=== PATIENT | male | born 1970 | race Caucasian/White ===

== ENCOUNTER 2019-01-31 08:25 | Observation (INO) ==
[2019-01-31] MEDS ORDERED: Ondansetron 4 MG/2 ML VIAL IVP ONE (08:29)
[2019-01-31] MEDS ORDERED: 0.9 % Sodium Chloride 500 ML IVC ONE (08:29)
[2019-01-31] MEDS ORDERED: Nitroglycerin 1 INCH/GM PACKET TP ONE (08:29)
--- NOTE | 2019-01-31 08:31 | Emergency Department Note ---
Disposition Clinical Impression: Chest pain Qualifiers: Chest pain type: precordial pain Qualified Code(s): R07.2 - Precordial pain Disposition: Admitted As Inpatient Condition: Fair Referrals: NONE,PCP [Non-Partnered Physician] - Forms: ED Satisfaction Letter Time of Disposition: 10:30 Chest Pain HPI - General Chief Complaint: ED Chest Pain Stated Complaint: Chest Pain Time Seen by Provider: 01/31/19 08:29 Source: patient, EMS Mode of arrival: EMS Limitations: no limitations Vital Signs Reviewed: Yes Nursing Notes Reviewed: Yes - History of Present Illness HPI Narrative: Patient presents with history of some sharp left-sided chest pain for 2-3 days. He states he has had a constant midsternal chest pain since last night that is described as a needle feeling in the sitting pressure on his anterior chest. He feels that is a little bit worse when he is up and walking around. It feels like previous chest pains that he has had. Indicates he has had multiple evaluation but cannot recall that he has had any type of stent. He has had a remote catheterization and multiple stress tests in the past. He relates his cardiac care has been at [facility]. With this discomfort he states he has felt a little sweaty and nauseated and short of breath. He denies pain radiating to his jaw, back or arms. He denies cough, fevers or chills. Denies any abdominal pains. He has not had lower extremity swelling, immobilization, injury or pain. He denies any change to his medications or activity. He has a question of history of heart disease with recurrent chest pain evaluations in the past. He does have history of hypertension, diabetes and elevated cholesterol. States a family history is positive for father had a pacemaker and "heart disease". He is a lifetime nonsmoker and denies history of DVT or PE. He has been brought in by EMS with aspirin and nitroglycerin administered and an IV established. He had no effect with the nitroglycerin. EKG was obtained by EMS at 8048. This showed a sinus rhythm with a rate of 78, axis of -13, WI interval of 186 and a QT/QTC of 370/401. This is without any acute ST or T-wave changes to suggest ischemia or infarction. This is on my interpretation. Pt complaint: chest pain Onset (ago): day(s) (3) Duration: intermittent, gradually worsening Onset: during rest, during exertion Pain Location: substernal, left chest Severity: moderate, severe Quality: heaviness, sharp Pain Radiation: none Improves with: rest Worsens with: exertion, inspiration, palpation Associated symptoms: Reports: nausea, diaphoresis, dyspnea. Denies: vomiting, syncope, palpitations, fever, cough, leg swelling Treatments prior to arrival chest pain: aspirin, nitroglycerin - Related Data Home Medications Medication Instructions Recorded Confirmed Pravastatin Sodium [Pravachol] 40 mg PO HS 11/01/15 01/31/19 Aspirin 81 mg PO DAILY 10/12/16 01/31/19 Cetirizine HCl [24Hour Allergy] 10 mg PO DAILY 10/12/16 01/31/19 Isosorbide MONOnitrate (24 HR) 30 mg PO DAILY 10/12/16 01/31/19 [Imdur] Losartan Potassium [Cozaar] 100 mg PO DAILY 10/12/16 01/31/19 Nitroglycerin [Nitrostat] 0.4 mg SL Q5M PRN 10/12/16 01/31/19 Omeprazole [PriLOSEC] 20 mg PO DAILY 10/12/16 01/31/19 metFORMIN [Glucophage] 500 mg PO BIDWM 10/12/16 01/31/19 Metoprolol [Lopressor] 100 mg PO BID 08/25/17 01/31/19 SitaGLIPtin [Januvia] 100 mg PO DAILY 08/25/17 01/31/19 Previous Rx's Medication Instructions Recorded Amoxicillin/Clavulanate [Augmentin] 875 mg PO BID #20 tablet 05/10/18 Ondansetron ODT [Zofran ODT] 4 mg SL Q6HR PRN #10 tab.rapdis 05/10/18 methylPREDNISolone [Medrol] 4 mg PO TAPER #21 tablet 05/10/18 Allergies Allergy/AdvReac Type Severity Reaction Status Date / Time No Known Allergies Allergy Verified 05/10/18 15:19 All systems ED: reviewed and negative except as stated. Chest Pain PMH - Past Medical History Medical history: Reports: diabetes, GERD, hypertension, seizures Surgical history: Reports: no surgical history. 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 Absent: scleral icterus, conjunctival injection - ENT ENT exam: normal exam, normal oropharynx, mucous membranes moist - Neck Neck exam: Present: normal inspection, full ROM, trachea midline - Chest Chest inspection: Present: normal inspection, symmetric chest wall rise, tenderness (Left peristernal and low sternal region). Absent: rash - Respiratory Respiratory exam: Present: normal lung sounds bilaterally. Absent: respiratory distress, wheezes, accessory muscle use - Cardiovascular Cardiovascular exam: Present: regular rate, normal rhythm, normal heart sounds. Absent: tachycardia - Abdominal Exam Abdominal exam: Present: soft, Non-Tender, normal bowel sounds. Absent: tenderness, distention, guarding, rebound, rigidity Abdominal tenderness: Absent: RUQ, LUQ - Extremities Exam Extremities exam: Present: normal inspection, full ROM, normal capillary refill. Absent: tenderness, pedal edema, calf tenderness - Expanded Lower Extremity Exam Neurovascular/Tendon exam: Present: normal capillary refill. Absent: motor deficit, sensory deficit, tendon deficit Gait: observed and normal - Back Exam Back exam: Present: normal inspection, full ROM. Absent: tenderness, CVA tenderness (R), CVA tenderness (L) - Neurological Exam Neurological exam: Present: alert, oriented X3 - Psychiatric Psychiatric exam: Present: normal affect, normal mood. Absent: agitated, anxious - Skin Skin exam: Present: warm, dry, intact, normal color. Absent: diaphoresis, pallor Course Course Narrative: The results of all testing is been discussed with the patient and family. He is resting comfortably with a heart rate of 78, respiratory rate of 18, blood pressure 164/100 and oxygen saturation of 98% on room air. He states he is currently completely pain-free with an inch of Nitro paste. I reviewed his multiple previous evaluations for chest pain, his 20th negative troponin and his negative stress tests. He, nonetheless, does have cardiac risk factors and a current presentation with pain consistent with a myocardial cause an relief with nitroglycerin. I recommended observation with serial troponins and he is agreeable. I have subsequently discussed this with Dr. Thompson who is agreeable with observation at this facility and coordinate further outpatient referrals and testing if his serial troponins were negative. Vital Signs Temperature 97.8 F 01/31/19 08:26 Pulse Rate 78 01/31/19 08:26 Respiratory Rate 18 01/31/19 08:26 Blood Pressure 168/90 01/31/19 08:26 O2 Sat by Pulse Oximetry 96 01/31/19 08:26 Temperature 97.8 F 01/31/19 08:26 Pulse Rate 71 01/31/19 10:10 Respiratory Rate 17 01/31/19 10:10 Blood Pressure 158/99 01/31/19 10:10 O2 Sat by Pulse Oximetry 99 01/31/19 10:10 Oxygen Delivery Oxygen Delivery Nasal Cannula Chest Pain - Differential Diagnosis Likely: atypical chest pain, costalchondritis, chest pain - Medical Records Medical records reviewed: Yes I reviewed the patient's medical records. Name: MATT NORMAN Date of Study: 10/30/2013 Date: 1970 Indication: Chest Pain, Palpitations Impressions: Stress ECG is negative for ischemia. Normal hemodynamic responses to exercise. The exercise capacity was fair. Patient exercised 8 min 0 sec into stage 3 of the Isaiah protocol, stopping due to fatigue and dyspnea. Achieved 93% MPHR, 10.1 METs, DP 30,360. No chest pain or significant arrhythmias were noted during exercise or recovery. Findings: Resting ECG showed normal sinus rhythm; no arrhythmias. Stress ECG is negative for ischemia. Normal hemodynamic responses to exercise. The exercise capacity was fair. Patient exercised 8 min 0 sec into stage 3 of the Isaiah protocol, stopping due to fatigue and dyspnea. Achieved 93% MPHR, 10.1 METs, DP 30,360. No chest pain or significant arrhythmias were noted during exercise or recovery. History: Hypercholesteremia The cardiology evaluation from October 2013 is as follows: "HOSPITAL COURSE: Patient came to us on March 21, 2014 with a diagnosis of chest pain. During his hospital stay, the patient did get an EKG. He had serial troponins and an echo. We did find a history in the computer of one catheterization and multiple stress tests with no significant findings. Patient is stable and denies any pain at this time. We will go ahead and discharge patient in stable condition. We will give him some sublingual nitro to have in case he experiences chest pain again and we will start him on Imdur 60 mg q.a.m. We also did find in the course of his stay that he has mild renal insufficiently at this time which is a new finding. We will send him back to his PCP in two weeks, and he was instructed to followup and check a basic metabo lic panel in one week. Patient's family understands that due to his current negative pain and also that his echo findings today were 60% left ventricular ejection fraction and just mild left ventricular diastolic dysfunction, mild tricuspid regurg, and he has been stable here overnight with negative troponins. " Patient's cardiac catheterization was from September 2010 with results as follows: Catheterization Lab Patient Name: Matt Norman Procedure Date: 10/01/2010 Date of : 1970 Findings/Interventions: Left Ventriculography - There was normal size and contractility of the left ventricle. Left ventricular ejection fraction was 65%. Left Main Coronary Artery - There were no obstructing lesions in the left main coronary artery. Blood flow appeared normal. Left Anterior Descending Artery - There was a 30% tubular stenosis in the mid left anterior descending artery. Left Circumflex Artery - The circumflex artery gave rise to a single obtuse marginal artery. There were luminal irregularities from the proximal left circumflex artery to the proximal first obtuse marginal artery. 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 Right Coronary Artery - The right coronary artery was dominant to the posterior circulation. There were luminal irregularities from the proximal to mid right coronary artery. Impression: Minimal atherosclerotic coronary artery disease. Normal left ventricular size and contractility. The left ventricular ejection fraction was 65%. Have reviewed all the patient's troponins back to 10/01/2010 and he has had 19 negative studies. - Lab Data Lab results reviewed: Yes I reviewed the patient's lab results. Result diagrams: 01/31/19 08:52 01/31/19 08:52 Lab Results 01/31/19 01/31/19 01/31/19 Range/Units 08:52 08:52 08:52 WBC 6.3 (4.3-11.1) K/mcL RBC 4.49 (4.19-5.50) M/mcL Hgb 13.7 (12.9-16.9) g/dL Hct 38.6 (37.5-50.1) % MCV 86.0 (83.0-100.0) fL MCH 30.5 (28.0-33.3) pg MCHC 35.5 (31.6-35.5) g/dL RDW 12.1 (11.5-14.5) % Plt Count 152 (140-400) K/mcL MPV 9.8 (9.4-12.4) fL Immature Gran % 0.3 (0-4) % Seg Neutrophils % 74.9 % Lymphocytes % 15.0 % Monocytes % 7.0 % Eosinophils % 2.2 % Basophils % 0.6 % Neutrophils # 4.7 (1.6-8.9) K/mcL Lymphocytes # 0.9 (0.6-4.6) K/mcL Monocytes # 0.4 (0.0-1.3) K/mcL Eosinophils # 0.1 (0.0-0.6) K/mcL Basophils # 0.0 (0.0-0.2) K/mcL PT 12.0 (9.4-12.1) Seconds INR 1.1 APTT 31.6 (26.0-36.0) Seconds Sodium (136-145) mEq/L Potassium (3.5-5.1) mEq/L Chloride (98-107) mEq/L Carbon Dioxide (23-29) mEq/L BUN (6-20) mg/dL Creatinine (0.70-1.30) mg/dL Est GFR ( Amer) (> 60) Est GFR (Non-Af Amer) (> 60) BUN/Creatinine Ratio (6-26) Glucose (70-105) mg/dL Calculated Osmolality (280-300) Calcium (8.6-10.3) mg/dL Total Bilirubin 0.6 (0.3-1.0) mg/dL Direct Bilirubin 0.1 (0.0-0.2) mg/dL Indirect Bilirubin 0.5 (0.0-1.2) mg/dL AST 24 (13-39) Units/L ALT 32 (7-52) Units/L Alkaline Phosphatase 61 (34-104) Units/L Troponin I (< 0.04) ng/mL Serum Total Protein 7.1 (6.4-8.9) g/dL Albumin 4.1 (3.5-5.7) g/dL Globulin 3.0 (2.4-3.5) g/dL Albumin/Globulin Ratio 1.4 (1.1-2.2) Amylase 23 L (29-103) Units/L Lipase 39 (11-82) Units/L / Range/Units 08:52 WBC (4.3-11.1) K/mcL RBC (4.19-5.50) M/mcL Hgb (12.9-16.9) g/dL Hct (37.5-50.1) % MCV (83.0-100.0) fL MCH (28.0-33.3) pg MCHC (31.6-35.5) g/dL RDW (11.5-14.5) % Plt Count (140-400) K/mcL MPV (9.4-12.4) fL Immature Gran % (0-4) % Seg Neutrophils % % Lymphocytes % % Monocytes % % Eosinophils % % Basophils % % Neutrophils # (1.6-8.9) K/mcL Lymphocytes # (0.6-4.6) K/mcL Monocytes # (0.0-1.3) K/mcL Eosinophils # (0.0-0.6) K/mcL Basophils # (0.0-0.2) K/mcL PT (9.4-12.1) Seconds INR APTT (26.0-36.0) Seconds Sodium 139 (136-145) mEq/L Potassium 3.8 (3.5-5.1) mEq/L Chloride 106 (98-107) mEq/L Carbon Dioxide 22 L (23-29) mEq/L BUN 14 (6-20) mg/dL Creatinine 1.07 (0.70-1.30) mg/dL Est GFR ( Amer) > 60 (> 60) Est GFR (Non-Af Amer) > 60 (> 60) BUN/Creatinine Ratio 13 (6-26) Glucose 180 H (70-105) mg/dL Calculated Osmolality 293 (280-300) Calcium 8.4 L (8.6-10.3) mg/dL Total Bilirubin (0.3-1.0) mg/dL Direct Bilirubin (0.0-0.2) mg/dL Indirect Bilirubin (0.0-1.2) mg/dL AST (13-39) Units/L ALT (7-52) Units/L Alkaline Phosphatase (34-104) Units/L Troponin I < 0.03 (< 0.04) ng/mL Serum Total Protein (6.4-8.9) g/dL Albumin (3.5-5.7) g/dL Globulin (2.4-3.5) g/dL Albumin/Globulin Ratio (1.1-2.2) Amylase (29-103) Units/L Lipase (11-82) Units/L - Radiology Data Radiology results reviewed: Yes I reviewed the patient's radiology results. Single view chest x-ray is performed. This does not demonstrate evidence for infiltrate, effusion, pneumothorax, foreign body or heart failure. The cardiac silhouette is normal. I do not see abnormality to the osseous structures of the chest. This is on my interpretation. Impressions Chest X-Ray 01/31/19 08:29 IMPRESSION: No focal infiltrate noted. D/ / 01/31/2019 08:49:45 Micheal Bello MD / alistair Interpreting Provider: Micheal Bello MD - EKG Data EKG attestation: Yes I reviewed and interpreted this EKG. EKG shows normal: sinus rhythm, axis, intervals, QRS complexes, ST-T waves Rate: normal (77) Interpretation: no acute changes, normal EKG, unchanged when compared to prior tracing (date) (07/25/2015) Heart Score - Score History: Moderately Suspicious EKG: Normal Age: 45-65 Risk Factors: Equal/Greater than 3 risk factor or history of atherosclerotic disease Troponin: Less than normal limit HEART Score Total: 4
[2019-01-31 09:07] LABS: Basophils % 0.6 %; Eosinophils # 0.1 K/mcL (0.0-0.6); Eosinophils % 2.2 %; Hematocrit 38.6 % (37.5-50.1); Hemoglobin 13.7 g/dL (12.9-16.9); Immature Granulocytes % 0.3 % (0-4); Lymphocytes # 0.9 K/mcL (0.6-4.6); Mean Corpuscular HGB Conc 35.5 g/dL (31.6-35.5); Mean Corpuscular Hemoglobin 30.5 pg (28.0-33.3); Mean Platelet Volume 9.8 fL (9.4-12.4); Monocytes # 0.4 K/mcL (0.0-1.3); Neutrophils # 4.7 K/mcL (1.6-8.9); Platelet Count 152 K/mcL (140-400); Red Blood Count 4.49 M/mcL (4.19-5.50); Red Cell Distribution Width 12.1 % (11.5-14.5); Segmented Neutrophils % 74.9 %; White Blood Count 6.3 K/mcL (4.3-11.1)
[2019-01-31 09:08] LABS: INR 1.1
[2019-01-31 09:11] LABS: Activated Partial Thrombo Time 31.6 Seconds (26.0-36.0)
[2019-01-31 09:20] LABS: Albumin 4.1 g/dL (3.5-5.7); Albumin/Globulin Ratio 1.4 (1.1-2.2); BUN/Creatinine Ratio 13 (6-26); Bilirubin,Direct 0.1 mg/dL (0.0-0.2); Bilirubin,Indirect 0.5 mg/dL (0.0-1.2); Bilirubin,Total 0.6 mg/dL (0.3-1.0); Blood Urea Nitrogen 14 mg/dL (6-20); Calcium 8.4 mg/dL (8.6-10.3); Carbon Dioxide 22 mEq/L (23-29); Chloride 106 mEq/L (98-107); Glucose 180 mg/dL (70-105); Osmolality,Calculated 293 (280-300); Potassium 3.8 mEq/L (3.5-5.1); Sodium 139 mEq/L (136-145); Total Protein 7.1 g/dL (6.4-8.9); Troponin I < 0.03 ng/mL (< 0.04); eGFR For African Americans > 60 (> 60); eGFR For Non-African Americans > 60 (> 60)
[2019-01-31] MEDS ORDERED: MOM Conc 10 ML UD.LIQ PO PRN (11:58)
[2019-01-31] MEDS ORDERED: Naloxone 0.4 MG/ML INJ IVP PRN (11:58)
[2019-01-31] MEDS ORDERED: *HR* Dextrose 50 % in Water (Syg) 50 ML SYRINGE IVP PRN (11:58)
[2019-01-31] MEDS ORDERED: Mag Hydrox/Al Hydrox/Simeth 30 ML UDC PO PRN (11:58)
[2019-01-31] MEDS ORDERED: Dextrose Gel 15 GM/37.5 ML TUBE PO PRN ×2 (11:58)
[2019-01-31] MEDS ORDERED: 0.9 % Sodium Chloride 1,000 ML IVC SCH (11:58)
[2019-01-31] MEDS ORDERED: Ondansetron ODT 4 MG TAB.RAPDIS SL PRN (11:58)
[2019-01-31] MEDS ORDERED: D5% in Water 1,000 ML IVC PRN (11:58)
[2019-01-31] MEDS: Nitroglycerin 0.4 MG TAB.SUBL SL PRN ×2 (12:41→12:48)
[2019-01-31] MEDS: Insulin LISPRO 300 UNITS/3 ML VIAL SQ SCH ×2 (12:44→17:43)
--- NOTE | 2019-01-31 15:49 | Internal Med History&Physical ---
Date of Encounter: 01/31/19 Time of Encounter: 15:10 Assessment and Plan (1) Chest pain Current visit: Yes Status: Acute Possible atypical angina from vasospasm. Repeat cardiac enzymes have been ordered. Calcium channel christen will be started and further workup done as needed. Qualifiers: Chest pain type: precordial pain Qualified Code(s): R07.2 - Precordial pain (2) Type 2 diabetes mellitus Current visit: No Status: Chronic Continue Glucophage and Januvia with Accu-Cheks and SSI. 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 Internal Medicine - H&P: HPI Chief complaint: Chest pain Admitted From: Emergency Dept Plans for Post Hospital Care: Home History of present illness: Mr. Mccrary is a 48 year old male who came to emergency room stating he had discomfort in his chest described as someone "sitting on my chest" onset a few hours earlier. There was dyspnea, nausea without vomiting, and minimal cough with no productivity. He was evaluated in emergency room and admitted to [facility] floor for ongoing care needs. He reports a previous similar pain 3 days ago that improved after 2 nitroglycerin pills. He remained pain-free for the next 3 days until this morning. Cardiovascular history is significant for hypertension. Heart cath 10/01/2010 showed minimal ASHD with LVEF 65%. Regadenoson EST 08/26/2017 showed no EKG or perfusion changes indicating ischemia. Echocardiogram 08/26/2017 showed LVEF of 65-70%. There was no significant valvular abnormalities seen. Interventricular septum and posterior wall thickness measurements were elevated at 1.50 and 1.40 cm respectively. E/A ratio was 1.2. He states the chest pain seems to occur during emotional stress but not with exertional activities. He denies LA heart failure DVT or pulmonary embolus. Past Med Surg Social Fam HX - Past Medical History Medical history: diabetes, GERD, hypertension, seizures Additional medical history: Seizures were when he was a kids Psychiatric history: no psych history - Past Surgical History Surgical History: no surgical history - Social History Smoking Status: Never smoker Smokeless Tobacco Status: No Alcohol use: none Drug use: none - Family History Mother Hx Family Cardiac Disorders: No Hx Family Respiratory Disorders: No Hx Family Cancer: No Hx Family GI Disorders: No Hx Family Endocrine Disorder: No Hx Family Neuromuscular Disorders: No Hx Family Neurologic Disorders: No Hx Family HEENT Disorders: No Hx Family Autoimmune Disorders: No Father Hx Family Cardiac Disorders: Yes (pacer/defibulator) Hx Family Respiratory Disorders: No Hx Family Cancer: No Hx Family Endocrine Disorder: Yes (diabetes) Hx Family Neuromuscular Disorders: No Hx Family Neurologic Disorders: No Hx Family HEENT Disorders: No Hx Family Autoimmune Disorders: No Internal Medicine - H&P: Meds Pravastatin Sodium [Pravachol] 40 mg PO HS 11/01/15 [History] Aspirin 81 mg PO DAILY 10/12/16 [History] Cetirizine HCl [24Hour Allergy] 10 mg PO DAILY 10/12/16 [History] Isosorbide MONOnitrate (24 HR) [Imdur] 30 mg PO DAILY 10/12/16 [History] Losartan Potassium [Cozaar] 100 mg PO DAILY 10/12/16 [History] Nitroglycerin [Nitrostat] 0.4 mg SL Q5M PRN 10/12/16 [History] Omeprazole [PriLOSEC] 20 mg PO DAILY 10/12/16 [History] metFORMIN [Glucophage] 500 mg PO BIDWM 10/12/16 [History] Metoprolol [Lopressor] 100 mg PO BID 08/25/17 [History] SitaGLIPtin [Januvia] 100 mg PO DAILY 08/25/17 [History] Amoxicillin/Clavulanate [Augmentin] 875 mg PO BID #20 tablet 05/10/18 [Rx] Ondansetron ODT [Zofran ODT] 4 mg SL Q6HR PRN #10 tab.rapdis 05/10/18 [Rx] methylPREDNISolone [Medrol] 4 mg PO TAPER #21 tablet 05/10/18 [Rx] Allergy/AdvReac Type Severity Reaction Status Date / Time No Known Allergies Allergy Verified 05/10/18 15:19 All Systems PM: A 10-system review of systems was performed and is negative for pertinent findings except as documented above in the HPI. Review of systems: Gen.: He states his weight has been stable for several months Cardiovascular: As per history of present illness Respiratory: He is a lifelong nonsmoker and denies chronic lung disease GI: Denies disorders of his liver gallbladder or exocrine pancreas : He denies hematuria dysuria or kidney stones Neurologic: He reports seizures in childhood but none since age 12. He denies large distribution strokes. Endocrine: He was diagnosed with DM 2 approximately 2017. Hemoglobin A1c was 6.9% on 08/04/2018. He has history of hyperlipidemia. He denies known thyroid disease. Hematology/oncology: He denies blood disorders cancers or anemia Psychiatric: He has depression but denies anxiety other mental health issues [place] skeletal: He denies arthritis gout or other bone joint or muscle disorders. - Constitutional Vitals: Temp Pulse Resp BP Pulse Ox 97.7 F 89 20 143/81 96 01/31/19 14:22 01/31/19 14:22 01/31/19 14:22 01/31/19 14:22 01/31/19 14:22 Exam: Gen.: He is a well-developed well-nourished male lying comfortably in bed who appears in no acute distress HEENT: Head is atraumatic and normocephalic. Eyes: EOMI. There is no scleral icterus. Mouth: Mucosa is moist. Neck: Supple and nontender. There is no thyromegaly or adenopathy noted. Heart: Regular without murmurs gallops or ectopics Lungs: No wheezes or crackles are heard. Chest: He is not tender in his chest wall to palpation. Abdomen: Soft and nontender. No masses or guarding are noted. Extremities: There is no cyanosis edema or clubbing noted. Dorsalis pedis and posterior tibial pulses are 1-2 over 2 bilaterally. Neurologic: Mental status: He is talkative and a good historian. He does not remember some details of his history. Cranial nerves: Smile is symmetric. Forehead wrinkles bilaterally. Tongue protrudes midline. EOMI. Motor: There is no pronator drift. Cerebellar: Finger to nose is intact bilaterally. Skin: Warm and dry Internal Med - H&P Results - Labs CBC & Chem 7: 01/31/19 08:52 01/31/19 08:52 Labs: Short CBC 01/31/19 Range/Units 08:52 WBC 6.3 (4.3-11.1) K/mcL Hgb 13.7 (12.9-16.9) g/dL Hct 38.6 (37.5-50.1) % Plt Count 152 (140-400) K/mcL Neutrophils # 4.7 (1.6-8.9) K/mcL BMP 01/31/19 08:52 Sodium 139 Potassium 3.8 Chloride 106 Carbon Dioxide 22 L BUN 14 Creatinine 1.07 Glucose 180 H Calcium 8.4 L Cardiac Enzymes 01/31/19 01/31/19 Range/Units 08:52 12:56 Troponin I < 0.03 < 0.03 (< 0.04) ng/mL Liver Function 01/31/19 Range/Units 08:52 Total Bilirubin 0.6 (0.3-1.0) mg/dL Direct Bilirubin 0.1 (0.0-0.2) mg/dL AST 24 (13-39) Units/L ALT 32 (7-52) Units/L Alkaline Phosphatase 61 (34-104) Units/L Albumin 4.1 (3.5-5.7) g/dL - Impressions ITS Impressions Chest X-Ray 01/31/19 08:29 IMPRESSION: No focal infiltrate noted. D/ / 01/31/2019 08:49:45 Micheal Bello MD / alistair Interpreting Provider: Micheal Bello MD
[2019-01-31] MEDS: *HR* Metformin 500 MG TABLET PO SCH (17:43)
[2019-01-31] MEDS: Diltiazem CD (24hr) 180 MG CAPSULE PO SCH (17:43)
[2019-01-31] MEDS ORDERED: Acetaminophen 325 MG TABLET PO PRN (18:18)
--- NOTE | 2019-01-31 19:52 | Electrocardiograph Report ---
[place] [id number] Test Date: 2019-01-31 Pat Name: Matt Mccrary Department: EDP-16 Room: [facility] Gender: M Enrollment Specialist: : 1970 Requested By: Segundo Lora Order Number: [id number] Reading MD: Dianne Galvan Measurements Intervals [place] Rate: 77 P: 22 DE: 184 QRS: -12 QRSD: 91 T: 27 QT: 376 QTc: 426 Interpretive Statements Sinus rhythm Electronically Signed On 01-31-2019 19:51:16 EDT by Dianne Galvan
[2019-02-01] MEDS ORDERED: *HR* Enoxaparin 40 MG/0.4 ML SYRINGE SQ SCH (06:00)
[2019-02-01] MEDS: Diltiazem CD (24hr) 180 MG CAPSULE PO SCH (08:42)
[2019-02-01] MEDS: Insulin LISPRO 300 UNITS/3 ML VIAL SQ SCH (08:42)
[2019-02-01] MEDS: *HR* Metformin 500 MG TABLET PO SCH (08:42)
[2019-02-01] MEDS ORDERED: *HR* SitaGLIPtin 25 MG TABLET PO SCH (09:00)
[2019-02-01] MEDS ORDERED: Isosorbide MONOnitrate (24 HR) 30 MG TAB.ER.24H PO SCH (09:00)
[2019-02-01] MEDS ORDERED: Loratadine 10 MG TABLET PO SCH (09:00)
[2019-02-01] MEDS ORDERED: Aspirin 81 MG TAB.CHEW PO SCH (09:00)
[2019-02-01 09:02] LABS: Estimated Average Glucose 160 mg/dl
--- NOTE | 2019-02-01 09:31 | Discharge Summary ---
Date of Encounter: 02/01/19 Time of Encounter: 09:24 - Discharge Diagnosis (1) Chest pain Priority: Primary Status: Resolved Qualifiers: Chest pain type: precordial pain Qualified Code(s): R07.2 - Precordial pain (2) Type 2 diabetes mellitus Priority: Secondary Status: Chronic Qualifiers: Diabetes mellitus mcc insulin use: without supervisor fusing room use Diabetes mellitus complication status: without complication Qualified Code(s): E11.9 - Type 2 diabetes mellitus without complications (3) Essential hypertension Priority: Secondary Status: Chronic Hospital course: Mr. Mccrary is a 48 year old male who came to emergency room stating he had discomfort in his chest described as someone "sitting on my chest" onset a few hours earlier. There was dyspnea, nausea without vomiting, and minimal cough with no productivity. He was evaluated in emergency room and admitted to [facility] floor for ongoing care needs. Initial orders were written by the emergency room physician. I saw him on January 31 and performed the history and physical. Repeat cardiac enzymes showed no evidence of myocardial damage. He was started on Cardizem CD 180 mg daily. He had no further chest pain. Blood pressure returned to more desirable level. When I saw him on February 01 he felt improved and stable for discharge home. He will continue Cardizem CD at discharge. He will follow with his PCP Dr. Scott Be within 1 week. - Time Spent with Patient Total time spent providing and/or coordinating discharge services: - Discharge Medications Prescriptions: New Diltiazem CD (24hr) [Cardizem CD] 180 mg PO DAILY #30 cap.er.24h Continued Omeprazole [PriLOSEC] 20 mg PO DAILY metFORMIN [Glucophage] 500 mg PO BIDWM Isosorbide MONOnitrate (24 HR) [Imdur] 30 mg PO DAILY Losartan Potassium [Cozaar] 100 mg PO DAILY Aspirin 81 mg PO DAILY Nitroglycerin [Nitrostat] 0.4 mg SL Q5M PRN PRN Reason: Chest Pain SitaGLIPtin [Januvia] 100 mg PO DAILY Metoprolol [Lopressor] 100 mg PO BID Ondansetron ODT [Zofran ODT] 4 mg SL Q6HR PRN #10 tab.rapdis PRN Reason: Nausea Pravastatin Sodium [Pravachol] 40 mg PO HS Discontinued Cetirizine HCl [24Hour Allergy] 10 mg PO DAILY Amoxicillin/Clavulanate [Augmentin] 875 mg PO BID #20 tablet methylPREDNISolone [Medrol] 4 mg PO TAPER #21 tablet Home Medications: Pravastatin Sodium [Pravachol] 40 mg PO HS 11/01/15 [History] Aspirin 81 mg PO DAILY 10/12/16 [History] Isosorbide MONOnitrate (24 HR) [Imdur] 30 mg PO DAILY 10/12/16 [History] Losartan Potassium [Cozaar] 100 mg PO DAILY 10/12/16 [History] Nitroglycerin [Nitrostat] 0.4 mg SL Q5M PRN 10/12/16 [History] Omeprazole [PriLOSEC] 20 mg PO DAILY 10/12/16 [History] metFORMIN [Glucophage] 500 mg PO BIDWM 10/12/16 [History] Metoprolol [Lopressor] 100 mg PO BID 08/25/17 [History] SitaGLIPtin [Januvia] 100 mg PO DAILY 08/25/17 [History] Ondansetron ODT [Zofran ODT] 4 mg SL Q6HR PRN #10 tab.rapdis 05/10/18 [Rx] Diltiazem CD (24hr) [Cardizem CD] 180 mg PO DAILY #30 cap.er.24h 02/01/19 [Rx] Allergies/Adverse Reactions: Allergy/AdvReac Type Severity Reaction Status Date / Time No Known Allergies Allergy Verified 05/10/18 15:19 Date of admission: 01/31/19 10:35 Primary care physician: Scott Be DO - Constitutional Vitals: Temp Pulse Resp BP Pulse Ox 98.2 F 83 20 132/80 94 02/01/19 08:28 02/01/19 08:28 02/01/19 08:28 02/01/19 08:28 02/01/19 08:28 - Patient Status Disposition: Home, Self-Care Condition: Fair - Discharge Instructions Follow Up With: Scott Be DO [Primary Care Provider] - 1 week - Diet and Activity Activity: resume usual activities as tolerated Diet: diabetic diet
[2019-02-01 10:34] VITALS: BP 143/70
== END 2019-02-01 10:37 | disposition home or self-care (01) ==
LOC: EMEROOPIK 08:25 → INPPIK 08:25
PROVIDERS: ADMIT Internal Medicine; ATTEND Internal Medicine